=== PATIENT | female | born 1970 | race Caucasian/White ===

== ENCOUNTER 2021-09-03 12:27 | Emergency (ER) | payer OTHER ==
[~2021-09-03] VITALS: Ht 154.9 cm; Wt 71.7 kg
[2021-09-03] MEDS ORDERED: IBUP-1955 PO (13:20)
[2021-09-03 13:28] VITALS: BP 111/80
--- NOTE | 2021-09-03 13:28 | NUR ---
Patient discharged to home in stable condition with brisk steady gait. Written and verbal after care instructions given. Patient verbalized understanding and compliance of instructions. Stressed follow up with primary doctor or return to ER for worsening s/s.
== END 2021-09-03 13:28 | disposition home or self-care (01) ==
LOC: ER 12:27
DX: J20.9 Acute bronchitis, unspecified (principal); Z20.822 Contact with and (suspected) exposure to COVID-19
CPT/HCPCS: 71045; A4663